=== PATIENT | female | born 1970 | race Caucasian/White ===

== ENCOUNTER 2017-06-02 22:26 | Emergency (ER) | payer BC ==
[~2017-06-02] VITALS: Ht 144.8 cm; Wt 62.5 kg
[~2017-06-02 22:26] MED LIST: IBUP-1542 PO
[2017-06-02 22:44] VITALS: Ht 144.8 cm; Wt 62.5 kg
[2017-06-03] MEDS ORDERED: METOCLOPRAMIDE 10 MG INJ IV STA (02:50)
[2017-06-03] MEDS ORDERED: LIDOCAINE/MYLANTA 40 ML BTL PO STA (02:50)
[2017-06-03] MEDS ORDERED: FAMOTIDINE 20 MG TAB PO STA (02:50)
--- NOTE | 2017-06-03 03:38 | RADRPT ---
PROCEDURE: Chest. CLINICAL INDICATION: Chest pain. TECHNIQUE: Single frontal view of the chest was obtained. COMPARISON: 07/27/2015. FINDINGS: The cardiac silhouette is within normal limits. The aortic arch is unremarkable. There is no focal consolidation, vascular congestion or pleural effusion. There is no pneumothorax. IMPRESSION: No evidence for active cardiopulmonary disease. .Alphonso Angel MD, MD Date Time Electronically viewed and signed by .Alphonso Angel MD, on 06/03/2017 03:38 .T/
[2017-06-03 03:49] LABS: ADD SCAN DIFF NO
[2017-06-03 04:03] LABS: BASOPHILS % 0.5 % (0.0-2.0); EOSINOPHILS # 0.4 10^3/ul (0.0-0.5); HEMATOCRIT 42.2 % (37.0-47.0); LYMPHOCYTES # 2.7 10^3/ul (0.8-2.9); LYMPHOCYTES % 31.1 % (15.0-51.0); MEAN CORPUSCULAR HEMOGLOBIN 31.3 pg (29.0-33.0); MEAN CORPUSCULAR HGB CONC 33.2 g/dl (32.0-37.0); MEAN CORPUSCULAR VOLUME 94.4 fl (82.0-101.0); MEAN PLATELET VOLUME 11.9 fl (7.4-10.4); MONOCYTE # 0.6 10^3/ul (0.3-0.9); MONOCYTES % 7.3 % (0.0-11.0); NEUTROPHIL # 4.9 10^3/ul (1.6-7.5); PLATELET COUNT 190 10^3/UL (140-415); RED BLOOD COUNT 4.47 10^6/ul (4.20-5.40); RED CELL DISTRIBUTION WIDTH 13.2 % (11.5-14.5); WHITE BLOOD COUNT 8.8 10^3/ul (4.8-10.8)
[2017-06-03 04:13] LABS: ALBUMIN 4.6 g/dl (3.3-4.9); ALBUMIN/GLOBULIN RATIO 1.7; BILIRUBIN,INDIRECT 1.2 mg/dl (0-1.1); BILIRUBIN,TOTAL 1.2 mg/dl (0.2-1.3); CALCIUM 9.4 mg/dl (8.4-10.2); CREATININE 0.76 mg/dl (0.44-1.00); POTASSIUM 3.5 mmol/L (3.5-5.1); TOTAL PROTEIN 7.3 g/dl (6.1-8.1)
[2017-06-03 04:19] LABS: INR 0.99; PARTIAL THROMBOPLASTIN TIME 26.2 Sec (25.0-35.0); PROTIME 13.1 Sec (12.2-14.2)
[2017-06-03 04:22] LABS: TROPONIN-I 0.02 ng/ml (0.00-0.12)
[2017-06-03] MEDS ORDERED: CYAN500T46 PO (04:26)
[2017-06-03] MEDS ORDERED: FAMO-18 PO (05:12)
--- NOTE | 2017-06-03 05:21 | ERD ---
ER Documentation Chief Complaint Date/Time DATE: 06/03/17 TIME: 05:13 Chief Complaint CP x 3 days while eating/drinking. None at the moment HPI 46-year-old female presenting with chest pain for 3 days. She states it only happens while she is eating or drinking. It lasts about 10-15 minutes. It is a tightening that she feels in her chest. It is nonradiating, with no associated shortness of breath, nausea, vomiting, dizziness, or sweating. She denies any associated abdominal pain or fevers. No melena or hematochezia. She does admit to drinking a lot of carbonated fluids and belching a lot lately. Occasionally she does feel acid refluxing into her mouth. ROS All systems reviewed and are negative except as per history of present illness. Medications Home Meds Active Scripts Famotidine* (Pepcid*) 20 Mg Tablet, 20 MG PO BID, #14 TAB Prov:SADE CLARK MD 06/03/17 Reported Medications Cyanocobalamin* (Vitamin B12*) 500 Mcg Tab, 500 MCG PO DAILY, TAB 06/03/17 Discontinued Scripts Ibuprofen* (Motrin*) 600 Mg Tab, 600 MG PO Q6 for 7 Days, TAB Prov:JOSE TORRES MD 07/27/15 Allergies Allergies: Coded Allergies: No Known Allergy (Unverified , 06/03/17) PMhx/Soc Medical and Surgical Hx: pt denies Medical Hx, pt denies Surgical Hx History of Surgery: No Anesthesia Reaction: No Hx Neurological Disorder: No Hx Respiratory Disorders: No Hx Cardiac Disorders: No (Significant family hx of CAD) Hx Psychiatric Problems: No Hx Miscellaneous Medical Probl: No Hx Alcohol Use: No Hx Substance Use: No Hx Tobacco Use: No Smoking Status: Never smoker FmHx Family History: coronary disease (Father at 45 years old, sister had a stroke and heart attack at 18 years old for unknown reasons) Physical Exam Vitals Vital Signs Date Time Temp Pulse Resp B/P Pulse Ox O2 Delivery O2 Flow Rate FiO2 06/03/17 03:33 54 16 113/59 100 Room Air 06/03/17 03:31 Nasal Cannula 06/02/17 22:44 98.3 55 18 137/71 100 Physical Exam Const: Well-appearing, well-nourished, no apparent distress Head: Atraumatic Eyes: Normal Conjunctiva ENT: Normal External Ears, Nose and Mouth. Neck: Full range of motion..~ No meningismus. Resp: Clear to auscultation bilaterally Cardio: Regular rate and rhythm, no murmurs. 2+ distal pulses in all 4 extremities Abd: Soft, non tender, non distended. Normal bowel sounds Skin: No petechiae or rashes Back: No midline or flank tenderness Ext: No cyanosis, or edema Neur: Awake and alert Psych: Normal Mood and Affect Result Diagram: 06/03/17 0300 06/03/17 0300 Results 24 hrs Laboratory Tests Test 06/03/17 03:00 White Blood Count 8.810^3/ul Red Blood Count 4.4710^6/ul Hemoglobin 14.0g/dl Hematocrit 42.2% Mean Corpuscular Volume 94.4fl Mean Corpuscular Hemoglobin 31.3pg Mean Corpuscular Hemoglobin Concent 33.2g/dl Red Cell Distribution Width 13.2% Platelet Count 76793^3/UL Mean Platelet Volume 11.9fl Neutrophils % 56.0% Lymphocytes % 31.1% Monocytes % 7.3% Eosinophils % 5.0% Basophils % 0.5% Nucleated Red Blood Cells % 0.0/100WBC Neutrophils # 4.910^3/ul Lymphocytes # 2.710^3/ul Monocytes # 0.610^3/ul Eosinophils # 0.410^3/ul Basophils # 0.010^3/ul Nucleated Red Blood Cells # 0.010^3/ul Prothrombin Time 13.1Sec Prothrombin Time Ratio 1.0 INR International Normalized Ratio 0.99 Activated Partial Thromboplast Time 26.2Sec Sodium Level 140mmol/L Potassium Level 3.5mmol/L Chloride Level 103mmol/L Carbon Dioxide Level 26mmol/L Anion Gap 15 Blood Urea Nitrogen 11mg/dl Creatinine 0.76mg/dl Glucose Level 90mg/dl Calcium Level 9.4mg/dl Total Bilirubin 1.2mg/dl Direct Bilirubin 0.00mg/dl Indirect Bilirubin 1.2mg/dl Aspartate Amino Transf (AST/SGOT) 26IU/L Alanine Aminotransferase (ALT/SGPT) 39IU/L Alkaline Phosphatase 76IU/L Troponin I 0.020ng/ml Total Protein 7.3g/dl Albumin 4.6g/dl Globulin 2.70g/dl Albumin/Globulin Ratio 1.70 Lipase 50U/L Current Medications Medications (Trade) Dose Ordered Sig/Jonathan Route PRN Reason Start Time Stop Time Status Last Admin Dose Admin Metoclopramide HCl (Reglan) 10 mg ONCE STAT IV 06/03/17 02:50 06/03/17 02:53 DC 06/03/17 03:25 Famotidine (Pepcid) 20 mg ONCE STAT PO 06/03/17 02:50 06/03/17 02:53 DC 06/03/17 03:25 Miscellaneous Medication (Gi Cocktail (2)) 40 ml ONCE STAT PO 06/03/17 02:50 06/03/17 02:53 DC 06/03/17 03:25 Procedures/MDM EKG: Rate/Rhythm: Sinus bradycardia at 54 bpm QRS, ST, T-waves: No changes consistent w/ acute ischemia Impression: No evidence of ischemia or arrhythmia Chest x-ray shows no acute abnormalities Labs CBC: no anemia or evidence of infection CMP: No evidence of electrolyte abnormality, renal failure, hypoglycemia, or liver failure Lipase: no evidence of pancreatitis Troponin within normal limits MDM: Patient is presenting with chest tightness with eating or drinking. Her vitals are stable and she is afebrile and well-appearing. Exam is unremarkable. I have a low suspicion for pulmonary embolism, acute coronary syndrome, aortic dissection, or esophageal rupture. I suspect the patient's symptoms are secondary to esophageal spasm versus gastroesophageal reflux. She was treated with a GI cocktail and Pepcid. Patient's thoracic symptoms have stabilized while in the department and are stable for outpatient follow up. Exam and work up not consistent w/ ischemia, arrhythmia, PE or dissection. I think the patient is stable for discharge at this time. I do not think a repeat troponin is necessary as the patient has had pain for 3 days and her troponin is within normal limits . However close follow-up with her primary care doctor was recommended within the next 1-2 days. Return precautions were discussed. Patient was discharged in a stable condition with a prescription for Pepcid. Departure Diagnosis: Primary Impression: Chest pain Chest pain type: other chest pain Qualified Code: R07.89 - Other chest pain Condition: Stable Patient Instructions: Chest Pain, Uncertain Cause Additional Instructions: Follow-up with your primary care doctor in 1-2 days. Return to the ER for any worsening symptoms. EKMEKJIAN,NELLIE R. MD Jun 03, 2017 05:21
[2017-06-03 05:24] VITALS: BP 121/76; PULSE 60; RESP 16
== END 2017-06-03 05:26 | disposition home or self-care (01) ==
LOC: E/R 22:26
DX: R07.89 Other chest pain (principal); R40.2142 Coma scale, eyes open, spontaneous, at arrival to emergency department; R40.2252 Coma scale, best verbal response, oriented, at arrival to emergency department; R40.2362 Coma scale, best motor response, obeys commands, at arrival to emergency department
CPT/HCPCS: 71010; 80053; 83690; 84484; 85025; 85610; 85730; 93005; 96374; J2765; Z7502; Z7610

== ENCOUNTER 2018-05-17 14:16 | Emergency (ER) | END 2018-05-17 15:39 | disposition home or self-care (01) ==

== ENCOUNTER 2018-06-20 07:55 | Emergency (ER) | END 2018-06-20 08:54 | disposition home or self-care (01) ==

== ENCOUNTER 2018-06-23 14:21 | Emergency (ER) | END 2018-06-23 18:10 | disposition home or self-care (01) ==